=== PATIENT | male | born 1980 | race Caucasian/White ===

== ENCOUNTER 2017-12-05 05:56 | Inpatient (IN) | payer SELFPAY ==
[2017-12-05 06:45] LABS: #Basophils 0.1 thou/uL (0.0-0.2); #Eosinphils 0.2 thou/uL (0.0-0.7); #Lymphocytes 3.1 thou/uL (1.20-3.40); #Monocytes 0.8 thou/uL (0.11-0.59); #Neutrophils 5.2 thou/uL (1.40-6.50); %Basophils 0.6 % (0.0-1.0); %Eosinophils 2.3 % (0.0-10.0); %Lymphocytes 33.3 % (21.0-51.0); %Monocytes 8.5 % (0.0-10.0); %Neutrophils 55.3 % (42.0-75.0); Hemoglobin 16.2 g/dL (14.0-18.0); Mean Corpuscular HGB CONC 33.9 g/dL (32.0-36.0); Mean Corpuscular Hemoglobin 30.2 pg (27.0-31.0); Mean Platelet Volume 8.1 fL (7.4-10.4); Platelet Count 273 thou/uL (130-400); RBC Distribution Width 12.8 % (11.5-14.5); Red Blood Cell (RBC) Count 5.38 mill/uL (4.70-6.10); White Blood Cell (WBC) Count 9.4 thou/uL (4.8-10.8)
[2017-12-05 07:00] LABS: Prothrombin Time 13.4 SEC (12.0-14.7)
[2017-12-05 07:04] LABS: ALT (SGPT) 15 U/L (8-55); AST (SGOT) 16 U/L (5-34); Acetaminophen Less than 6.0 mcg/mL (10.0-30.0); Albumin 4.5 g/dL (3.5-5.0); Alcohol Less than 10 mg/dL (Less than 10); Alkaline Phosphatase 81 U/L (40-150); Anion Gap 12 mmol/L (10-20); BUN (Urea Nitrogen) 15 mg/dL (8.9-20.6); Bilirubin, Total 1.6 mg/dL (0.2-1.2); Calc. Creatinine Clearance 0 mL/min (70-130); Calcium 9.7 mg/dL (7.8-10.44); Carbon Dioxide 30 mmol/L (22-29); Chloride 99 mmol/L (98-107); Estimated GFR-MDRD 90; Glucose 96 mg/dL (70-105); Magnesium 2.4 mg/dL (1.6-2.6); Potassium 3.3 mmol/L (3.5-5.1); Protein, Total 7.5 g/dL (6.0-8.3); Salicylate Less than 8.0 mg/dL (15.0-30.0); Sodium 138 mmol/L (136-145)
--- NOTE | 2017-12-05 07:43 | RAD ---
PORTABLE CHEST 1 VIEW: DATE: 12/05/17. TIME: 6:41 a.m. HISTORY: Altered mental status. FINDINGS: The heart size is enlarged. The lungs are expanded without focal areas of consolidation, pneumothora x, anali pulmonary edema, or pleural effusions. POS: OFF
--- NOTE | 2017-12-05 08:08 | CT ---
CT BRAIN NONCONTRAST: DATE: 12/05/17. TIME: 7:15 a.m. HISTORY: A 37-year-old male with altered mental status. COMPARISON: None. Dr. Rose discussed the findings by telephone with Dr. Wilkes at 7:58 a.m., then at 8:08 am, on 12/05/17 . FINDINGS: In the left parietal region, there is a region of mild parenchymal hemorrhage, surrounded by vasogeni c edema. There are multiple small patchy foci of edema in the left basal ganglia, left insula, and l eft operculum. There is no significant effect. No midline shift. No extraaxial hematoma. The ventr icles are normal in size and configuration. Calvarium is intact IMPRESSION: 1. Multiple small patchy foci of edema in the left middle cerebral artery territory, probably a cute infarctions. 2. A small to moderate-sized region of left parietal intraaxial hemorrhage and surrounding edema , probably hemorrhagic conversion of an infarctions. 3. MRI may be useful, preferably with and without contrast. CODE WALI JN R POS: YADIRA
[2017-12-05] MEDS ORDERED: Nitroglycerin 0.4 MG TAB (25 Tab Bottle) SL PRN (09:47)
[2017-12-05] MEDS ORDERED: Lorazepam 2 MG/ML VIAL SLOW IVP PRN (09:47)
[2017-12-05] MEDS ORDERED: Acetaminophen 325 MG TAB PO PRN (09:47)
[2017-12-05] MEDS ORDERED: Labetalol HCl 100 MG/20 ML VIAL SLOW IVP PRN (09:47)
[2017-12-05] MEDS ORDERED: Norepinephrine 8 MG/0.9% NS 250 ML IVPB PRN (09:47)
[2017-12-05] MEDS ORDERED: Mag-Al 1200 mg/1200 mg/30 ML UDCUP PO PRN (09:47)
[2017-12-05] MEDS ORDERED: CCU Electrolyte Replacement 1 EACH IVPB ONE (09:47)
[2017-12-05] MEDS ORDERED: Milk Of Magnesia 30 ML UDCUP PO PRN (09:47)
[2017-12-05] MEDS ORDERED: Ondansetron PF 4 MG/2 ML Vial IVP PRN (09:47)
[2017-12-05] MEDS ORDERED: Bisacodyl 5 MG TAB PO PRN (09:47)
[2017-12-05] MEDS ORDERED: Potassium Chloride 40 MEQ in Sodium Chloride 0.9% 250 ML 250 ML IVPB SCH (10:00)
[2017-12-05 10:14] LABS: CKMB 0.8 ng/mL (0-6.6)
[2017-12-05] MEDS ORDERED: Potassium Chloride 20 MEQ TAB PO PRN (10:36)
[2017-12-05] MEDS ORDERED: Potassium Chloride 40 MEQ in Premix Bag 1 BAG IVPB PRN (10:36)
[2017-12-05] MEDS ORDERED: Potassium Phosphate 12 MMOL in Sodium Chloride 0.9% 250 ML 250 ML IV PRN (10:36)
[2017-12-05] MEDS ORDERED: Potassium Chloride 40 MEQ in Sodium Chloride 0.9% 250 ML 250 ML IVPB PRN (10:36)
[2017-12-05] MEDS ORDERED: Potassium Phosphate 9 MMOL in Sodium Chloride 0.9% 100 ML IVPB PRN (10:36)
[2017-12-05] MEDS ORDERED: Potassium Phosphate 15 MMOL in Sodium Chloride 0.9% 250 ML 250 ML IV PRN (10:36)
[2017-12-05] MEDS ORDERED: Magnesium Oxide 400 MG TAB PO PRN ×2 (10:36)
[2017-12-05] MEDS ORDERED: Magnesium 2 GM/NS 0.9% 100 ML 2 GM in Premix Bag 1 BAG IVPB PRN (10:36)
[2017-12-05 11:04] LABS: Cocaine Metabolite Screen Not Detected (NotDetected); Medtox Reader # READER 4; Methamphetamine Not Detected (NotDetected); Opiate Screen Not Detected (NotDetected); Phencyclidine (PCP) Not Detected (NotDetected); THC/Cannabinoid Screen Detected (NotDetected)
[2017-12-05 11:05] LABS: Amphetamine Detected (NotDetected); Barbiturates Screen Not Detected (NotDetected); Benzodiazepine Screen Not Detected (NotDetected); Medtox Control Line Valid? VALID (VALID); Methadone Not Detected (NotDetected); Oxycodone Screen Not Detected (NotDetected); Tricyclic Screen Not Detected (NotDetected)
[2017-12-05] MEDS: Sodium Chloride 0.9% 1,000 ML IV SCH (11:16)
[2017-12-05] MEDS: Dexamethasone 4 mg/ml Vial SLOW IVP SCH ×2 (11:20→17:39)
[2017-12-05] MEDS ORDERED: Dexamethasone 4 MG in Sodium Chloride 0.9% 50 ML IVPB SCH (12:00)
--- NOTE | 2017-12-05 12:40 | CON ---
This is Rafaela Santoro PA-C, with Neurosurgery Service. DATE OF CONSULTATION: 12/05/2017 ATTENDING PHYSICIAN: Dr. Flo Clemente. HISTORY OF PRESENT ILLNESS: The patient is a 37-year-old male who was brought to the Emerg ency Department per EMS after found at home in his bed with altered mental status after taking Bath S alts and K2. History is limited as there is no family or friends at the bedside and the patient is u nable to provide history secondary to expressive aphasia and altered mental status. Upon arrival, he was evaluated with a CT noncontrast of the head, which was notable for multiple infarctions in the l eft parietal region with small area of hemorrhagic conversion. There is no midline shift. There was some surrounding vasogenic edema in this region. It is unknown if the patient has a history of anti coagulant or aspirin use. He has a normal INR of 1.0. He also has a normal platelet count of 273. He is being admitted by the Medicine Service for acute CVA with an intentional illicit drug overdose, and we will consult regarding a small area of hemorrhagic conversion. I am seeing the patient in the ICU 86. He opens his eyes to voice. He has expressive aphasia, but w ill nod his head to yes or no questions. Weakness is appreciated over the right upper extremity, 2/5 strength. He is moving the remainder of the extremities with drift and 5/5 strength. He is also no shaista to have a right-sided facial droop. PAST MEDICAL AND SURGICAL HISTORY: Unobtainable secondary to patient's current condition. ALLERGIES: The patient has no known drug allergies. SOCIAL HISTORY: The patient is positive for drug use, K2 and Bath Salts. PHYSICAL EXAMINATION: VITAL SIGNS: Temperature is 98.3, heart rate is 70, respiration rate is 16. Patient is 97% on room air. CONSTITUTIONAL: GCS is 11. HEAD: Normocephalic and atraumatic. EYES: PERRLA. Extraocular movements are intact. Oral mucosa is pink, intact and moist. NECK: Nontender to palpation. Free active range of motion. No meningismus or nuchal rigidity. RESPIRATORY: The patient is breathing comfortably. No evidence of dyspnea, symmetric chest expansio n. CARDIOVASCULAR: Regular rate and rhythm. MUSCULOSKELETAL: He has good muscle tone in the bilateral upper and lower extremities. He is weak i n the right upper extremity, 2/5 with drift. NEUROLOGIC: He is awake and alert. He has expressive aphasia and is not answering any of my questio ns. He does nod his head yes or no. He is following all commands. Weakness is appreciated over the right upper extremity. A right-sided facial droop is also noted. ASSESSMENT AND PLAN: This is a 37-year-old male status post-illicit drug abuse with bath S alts and K2 who was found with altered mental status and expressive aphasia as well as right-sided we akness. His CT is consistent with acute cerebrovascular accident with a small area of hemorrhagic co nversion. I do not appreciate any acute neurosurgical intervention, but we will continue to follow a long the case as well as to get a repeat head CT noncontrast in the morning. I have discussed this p ann with Dr. Clemente who is in agreement. Please reach out to the Neurosurgery Service for addition al questions or concerns.
[2017-12-05 13:16] LABS: Troponin I Less than 0.010 ng/mL (< 0.028)
[2017-12-05] MEDS ORDERED: FLU VACC QS2017-18 36 mo. & older 0.5 ML SYRINGE IM ONE (14:00)
[2017-12-05] MEDS ORDERED: Gadobenate Dimeglumine 529 MG/1 ML (20ML VIAL) ONE (14:05)
--- NOTE | 2017-12-05 14:06 | CON ---
DATE OF CONSULTATION: 12/05/2017 HISTORY: This is a 37-year-old obese gentleman who apparently came to the ER with history of apparen tly drug abuse associated , though when I asked him he is unable to give any verbal communicatio n. He has a left-sided hemorrhage and right upper extremity weakness, paralysis on the right side. He nods his head. He says he does not take any alcohol or tobacco. Apparently he had been using K2 marijuana, but it is unclear how the history is obtained because he d enies any drug abuse at this time, but apparently there is some note that he was taking bath salts. 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 PAST MEDICAL HISTORY: No history of diabetes, hypertension. PAST SURGICAL HISTORY: None. CHRONIC MEDICATIONS: None. ALLERGIES: None. Apparently he has not been in the hospital before. SOCIAL/FAMILY HISTORY: Otherwise, unremarkable. Presently unemployed, but worked telecommunications in the past. REVIEW OF SYSTEMS: Ten point negative. PHYSICAL EXAMINATION: VITAL SIGNS: Blood pressure 150/90, sats 97 on room air, respirations 18, pulse 80. CHEST: Chest reveals decreased breath sounds, no wheezing. CARDIAC: Normal S1, S2. No gallops. ABDOMEN: Soft. No masses. LABORATORY DATA: White count 9000, H&H 16 and 47, platelet count is normal. Electrolytes are normal . His toxicology screen, blood was negative. Urine toxicology is pending. X-RAY FINDINGS: CT of the brain; I reviewed all x-ray images and reports personally, small patchy fo ci edema in the left middle cerebral artery territory distribution, acute infarcts. Moderate sized l eft parietal axial hemorrhage with edema. Chest x-ray was normal. Urine toxicology has been ordered. Neurology and Neurosurgery have been consulted. Supportive care . PLAN: Decadron has been initiated. Await input from Neurosurgery and Neurology. I will follow. This is 45 minute critical care time.
--- NOTE | 2017-12-05 14:12 | MRI ---
MRI OF THE BRAIN WITH AND WITHOUT CONTRAST: HISTORY: Acute stroke with altered mental status. COMPARISON: None. TECHNIQUE: Multiplanar, multisequence MR images were obtained of the brain with and without IV contrast. FINDINGS: There are patchy areas of high FLAIR signal and restricted diffusion in the left MCA distribution. T his is predominantly in the basal ganglia, temporal lobes, and parietal lobes. These are consistent with multifocal acute infarctions in the left MCA distribution. No midline shift or downward herniat ion is seen. There is no evidence of hydrocephalus, intracranial hemorrhage, or extraaxial fluid collection. The expected flow voids are present at the skull base. There is an area of enhancement in the left parie albin lobe, which may represent a subacute infarction and area of enhancement in this location. The co rpus callosum, pituitary, and craniocervical junction are unremarkable. IMPRESSION: 1. Multifocal infarctions in the left middle cerebral artery distribution. 2. There is an area of enhancement in the left parietal lobe, which likely represents enhancement of an area of subacute infarction; however, an underlying mass cannot be entirely excluded. Recommend a follow-up MRI to exclude an underlying mass. POS: YADIRA
--- NOTE | 2017-12-05 14:31 | HP ---
DATE OF ADMISSION: 12/05/2017 PRIMARY CARE PHYSICIAN: None. CHIEF COMPLAINT: Altered mental status. HISTORY OF PRESENT ILLNESS: Mr. Servin was brought into the emergency room by EMS for complaint of al tered mental status this morning. History is mainly obtained by the record review, as the patient healy s significant aphasia and is not able to talk at all. He is awake, alert, but very sleepy at this ti me. Case has been discussed with the admitting ER physician. According to Dr. Wilkes, he was brought in by emergency room after he was found at home in bed. He did report taking a known amount of bath salt as well as K2. At the time of presentation, he denied cocaine or methamphetamine to the emergency room physician. He was hemodynamically stable, albeit a little bit hypertensive upon presentation with a blood pressure of 167/112. His initial workup showe d significant aphasia, and according to the ER note, he was moving all 4 extremities and following co mmands. His EKG showed prolonged QT interval. He underwent a general examination including basic bl ood work, and there were no specific abnormalities except for mildly low potassium at 3.3. His cardi ac enzymes were unremarkable. BNP normal. TSH normal. He did undergo a CT scan of the head, which was concerning for possible acute infarction in the left MCA distribution with surrounding edema and hemorrhage. His urine toxicology was sent afterwards and is now positive for amphetamines and cannab inoids. His salicylate, acetaminophen, and alcohol levels are unremarkable. His chest x-ray did not have any evidence to suggest infection, effusion, or edema. He is now being admitted to the [facility], because of the intracranial hemorrhage associated with acute cerebrovascular accident. Once again, most of the history is obtained by the medical record review and discussion with the [facility] physician. The patient is not able to supplement any of this except that he nods or shake s his head to simple questions. PAST MEDICAL HISTORY: Unknown. PAST SURGICAL HISTORY: Unknown. PSYCHIATRIC HISTORY: Unknown. SOCIAL HISTORY: He uses currently various types of drugs. According to him, he had done bath salts, but he denied amphetamine use to me. ALLERGIES: No known medication allergies. CURRENT HOME MEDICATIONS: He denies being on any medications at home. REVIEW OF SYSTEMS: Unobtainable due to expressive aphasia. The patient shakes his head when I asked him if he is uncomfortable or has any kind of pain. LABORATORY EXAMINATION: CBC is unremarkable. PT, PTT, and INR are normal. Serum chemistries show p otassium of 3.3, bicarbonate 30, bilirubin 1.6 with normal liver enzymes. Serial cardiac enzymes and his troponin less than 0.010 x2. Urine drug screen as per the HPI. Chest x-ray, by my review, has no evidence to suggest infiltrates. He does have significant cardiomegaly on the chest x-ray by my valerie vera. CT scan of the brain as per HPI on my review. Acute patchy foci of edema in the left middle cerebral artery distribution consistent with acute infarction with mild surrounding hemorrhage. PHYSICAL EXAMINATION: VITAL SIGNS: His vital signs upon presentation include blood pressure 167/112, pulse of 80, respirat ions 18, saturating 97% on room air, temperature 99.1. GENERAL EXAMINATION: He opens eyes to verbal commands and follows simple commands, but falls back as leep very quickly. In no acute distress. HEENT: Mucous membrane is moist and pink. No oropharyngeal exudate or erythema. Pupils are dilated , reactive to light bilaterally. Head is normocephalic, atraumatic. NECK: Supple without any lymphadenopathy, JVD, or bruit. CHEST: Clear to auscultation without any wheezing, rales, or rhonchi. CARDIOVASCULAR: Rhythm is regular without any murmur, rubs, or gallops. ABDOMEN: Obese, soft, nontender, nondistended, positive bowel sounds. SKIN: Free of any cyanosis, clubbing, or edema. NEUROLOGICAL EXAMINATION: He has complete expressive aphasia. He has significant right arm hemipare sis. He is able to lift his right leg against resistance. Sensation is intact. He also has facial droop on the left side. Otherwise, cranial nerves II-XII are grossly intact. Gait is not checked. He appears awake, alert, oriented x3. He is able to answer simple questions about his family by nodd ing or shaking his head. SKIN: Free of any rashes or bruises. Feels warm and dry to touch. PSYCHIATRIC: Normal affect. IMPRESSION AND PLAN: 1. Altered mental status, likely secondary to acute cerebrovascular accident. It is most likely sec ondary to his drug abuse and the combination of amphetamine and K2. He does have a significant cardi omegaly on the chest x-ray, so cardiac causes including embolism will also need to be ruled out. We will go ahead and obtain an emergent MRI of his brain with and without contrast as well as transthora cic echocardiogram. I have notified Neurology director of conservation, Dr. Whittaker, about his presence in the hospital, and he will also follow the patient along. Neurosurgery have also been consulted through the emerge ncy room, and they have seen the patient. The plan is to follow him closely without any surgical int ervention for his hemorrhage. We will avoid any anticoagulants including aspirin at this time. 2. Acute cerebrovascular accident, question of embolism is entertained at this time as well. Howeve r ischemia cannot be ruled out, because of the presence K2 and amphetamines. We will obtain the MRI as above and check lipid panel. He will be treated symptomatically and supportively at this time. Inocencio lawton is currently being admitted to CCU due to mild hemorrhagic conversion of the accident. We will mon itor his blood pressure closely and he will be started on p.r.n. antihypertensives to keep systolic b lood pressure less than 150. At this time, he will be kept n.p.o. and we will consult speech patholo loida for further evaluation. He will also be seen by stroke team. We will obtain the echocardiogram , MRI as well as carotid Doppler ultrasound. 2. Hypokalemia. We will replace and recheck. He will be started on CCU electrolyte protocol. 3. Drug abuse. The patient will be counseled once he is stabilized. We will monitor his hemodynami cs closely. Currently, he is hemodynamically stable. 4. Code status: FULL CODE implied. 5. Deep venous thrombosis and gastrointestinal prophylaxis with non pharmacological prophylactic rito sures like sequential compression devices. We will add Pepcid IV b.i.d. DISPOSITION: Mr. Servin is currently being admitted to Critical Care Unit with acute ischemic cerebro vascular accident with hemorrhagic conversion. ESTIMATED LENGTH OF STAY: At least 2 to 3 midnights at this point. Further management will depend u sandra his clinical course.
--- NOTE | 2017-12-05 15:47 | ULT ---
BILATERAL CAROTID DUPLEX ULTRASOUND: HISTORY: CVA. TECHNIQUE: Nolen scale ultrasound with color flow and spectral Doppler imaging of the extracranial carotid artery systems was performed bilaterally. FINDINGS: No significant plaque formation or intimal wall thickening is seen on either side. The peak systolic velocity in the right ICA measures 52 cm/s with an end-diastolic velocity of 17 cm/ s and a systolic ratio of 0.56. The peak systolic velocity in the left ICA measures 47 cm/s with an end-diastolic velocity of 25 cm/s and a systolic ratio of 0.48. Flow in both vertebral arteries remains antegrade. IMPRESSION: No evidence of hemodynamically significant stenosis. POS: OFF
[2017-12-05 16:49] LABS: Troponin I 0.012 ng/mL (< 0.028)
[2017-12-05] MEDS: Famotidine/PF 20 mg/2ml Vial SLOW IVP SCH (21:11)
[2017-12-06] MEDS: Dexamethasone 4 mg/ml Vial SLOW IVP SCH ×4 (00:17→17:50)
[2017-12-06 04:30] LABS: Band 4 % (5-11); Hemoglobin 15.4 g/dL (14.0-18.0); Lymphocytes 11 % (21-51); MDiff Complete? YES; Mean Corpuscular Volume 88.4 fl (80.0-94.0); Mean Platelet Volume 8.2 fL (7.4-10.4); Monocytes 4 % (0-10); Neutrophil 81 % (42-75); Platelet Count 269 thou/uL (130-400); RBC Distribution Width 12.7 % (11.5-14.5); Red Blood Cell (RBC) Count 5.13 mill/uL (4.70-6.10); White Blood Cell (WBC) Count 10.4 thou/uL (4.8-10.8)
[2017-12-06 04:39] LABS: Cardiac Risk 6.4 (Less than 4.5)
[2017-12-06 04:40] LABS: ALT (SGPT) 16 U/L (8-55); AST (SGOT) 14 U/L (5-34); Albumin 4.1 g/dL (3.5-5.0); Alkaline Phosphatase 79 U/L (40-150); Anion Gap 14 mmol/L (10-20); BUN (Urea Nitrogen) 15 mg/dL (8.9-20.6); Calc. Creatinine Clearance 235 mL/min (70-130); Calcium 9.3 mg/dL (7.8-10.44); Carbon Dioxide 23 mmol/L (22-29); Chloride 106 mmol/L (98-107); Estimated GFR-MDRD Greater than 90; Globulin 2.8 g/dL (2.4-3.5); Glucose 112 mg/dL (70-105); Protein, Total 6.9 g/dL (6.0-8.3); Sodium 139 mmol/L (136-145)
[2017-12-06] MEDS: Sodium Chloride 0.9% 1,000 ML IV SCH (05:34)
--- NOTE | 2017-12-06 07:49 | CT ---
PRELIMINARY REPORT/[facility]/EMERGENCY AFTER HOURS PROCEDURE: EXAM: CT Head Without Intravenous Contrast CLINICAL HISTORY: 37 years old, male; Condition or disease; Other: Acute CVA with hemorrhagic convesion; Patient HX: F/ u acute CVA with hemorrhagic convesion TECHNIQUE: Axial computed tomography images of the head/brain without intravenous contrast. COMPARISON: CT Brain WO Con 2017-12-05 07:15 FINDINGS: Brain: Multiple abnormal areas of hypoattenuation within the left temporal and posterior parietal lob es, similar to prior study, likely evolving infarctions. Ventricles: Normal. Bones/joints: Normal. No acute fracture. Soft tissues: Normal. Sinuses: Minimal ethmoid sinus disease. Mastoid air cells: Normal as visualized. No mastoid effusion. IMPRESSION: 1. Multiple abnormal areas of hypoattenuation within the left temporal and posterior parietal lobes, similar to prior study, likely evolving infarctions. 2. No evidence of acute hemorrhage. 3. Incidental/non-acute findings are described above. Thank you for allowing us to participate in the care of your patient. Dictated and Authenticated by: Elpidio Trammell MD 12/06/2017 3:46 AM Central Time ([place] & [place]) FINAL REPORT EMERGENT AFTER HOURS CT BRAIN WITHOUT CONTRAST: 12/06/2017 at 3:33 a.m. CODE QA/Agree with [facility] POS: YADIRA
--- NOTE | 2017-12-06 08:00 | PRG ---
DATE OF SERVICE: 12/06/2017 Mr. Servin is a 37-year-old gentleman, this morning is a little bit more awake, responsive. He is abl e to verbalize. He still has right-sided weakness. His I's and O's have been adequate. PHYSICAL EXAMINATION: VITAL SIGNS: Blood pressure 145/84, pulse 78, sats 97% on room air, respirations 18. CHEST: Chest reveals decreased breath sounds, no wheezing. CARDIAC: Normal S1, S2. ABDOMEN: Soft, no masses. LABORATORY DATA: White count 10,000, H&H 14 and 44. Electrolytes are normal. His drug screen revealed amphetamines and cannabinoids. He had a repeat CT of his brain this morning . This once again shows the left frontoparietal hemorrhage. IMPRESSION: 1. Left-sided hemorrhage. 2. Drug abuse. PLAN: Continue PT and supportive care. Input from Neurology is still awaiting. He probably can be transferred out of the ICU at a later time.
[2017-12-06] MEDS: Famotidine/PF 20 mg/2ml Vial SLOW IVP SCH ×2 (09:13→21:28)
--- NOTE | 2017-12-06 10:38 | CON ---
DATE OF CONSULTATION: 12/05/2017 REFERRING PROVIDER: Dr. Emili Leung. REASON FOR CONSULTATION: Right hemiparesis and aphasia. HISTORY OF PRESENT ILLNESS: Mr. Servin is a 37-year-old male who has been consulted for evaluation of right hemiparesis and aphasia. History is obtained from mother who was present at bedside. Mother reports that patient lives with someone else and they had noticed that they heard a loud thud and when the person went to do a check on him, he was unable to move his right side. He had fallen off the bed. The last time well known is unknown at this time. They had called EMS and he was brought to the [facility]. He had a CT head without contrast done, which showed some hypodensity in the left MCA distribution. For this reason, he was not a candidate for IV tPA or IA tPA. He is also not a candidate for endovascular therapy due to the fact that there was already stroke present on the CT scan. I am being asked to further evaluate this patient for his recent stroke. PAST MEDICAL HISTORY: None significant. PAST SURGICAL HISTORY: None significant. SOCIAL HISTORY: Unknown. CURRENT MEDICATIONS: Please review MAR. ALLERGIES: No known drug allergies. FAMILY HISTORY: Noncontributory. REVIEW OF SYSTEMS: Unable to perform. PHYSICAL EXAMINATION: VITAL SIGNS: Blood pressure of 138/74, heart rate of 85, temperature of 98.9, respirations of 23, O2 sats of 94%. GENERAL: Well-developed, well-nourished male in no apparent distress. RESPIRATORY: Clear to auscultation bilaterally. CARDIOVASCULAR: Regular rate and rhythm. NEUROLOGIC: The patient is awake and alert, but he is completely mute. He is globally aphasic. Cranial nerves: Pupils are 3 mm and reactive. He blinks to threat on the left side, but does not blink to threat on the right side. There is a right facial droop noted. Motor exam showed flaccid right upper and right lower extremity with 0-5 strength in the right upper and right lower extremity. He spontaneously moves left upper and left lower extremity with 5/5 strength on the left upper and left lower extremity. Sensory: He does not withdraw to pain on the right side. Brisk reflexes in the right upper and right lower extremity. Babinski plantar responses equivocal on the right side and flexion on the left. Gait and Romberg coordination could not be tested. LABORATORY DATA: Reviewed, which included CBC, coag panel, CMP, and TSH which is significant for potassium of 3.3, otherwise unremarkable. Urine drug screen did show positive for amphetamines and cannabinoids. Plasma alcohol level was less than 10. IMAGING STUDIES: MRI brain without contrast was reviewed, which showed acute multifocal infarctions in the left MCA territory. IMPRESSION: 1. Acute left middle cerebral artery distribution ischemic infarct. 2. Polysubstance abuse. ASSESSMENT AND PLAN: Mr. Servin is a pleasant 37-year-old male who presented with acute right-sided weakness and aphasia. He is found to have large left middle cerebral artery distribution multifocal ischemic infarct. At this time, I will recommend continuing supportive care, consult PT, OT, speech therapy. I would recommend obtaining echocardiogram and if transthoracic echocardiogram is normal, then he may benefit from transesophageal echocardiogram. I will also recommend obtaining hypercoagulation panel and I have discussed with the patient's mother in detail and explained the findings with MRI. I also explained that there is a risk of worsening of the stroke over the next 2-3 days, which may have result in swelling and swelling can cause herniation. I have explained that patient needs to be monitored over the next 2-3 days for any neurological changes. Thank you for your consultation. ERIKA
--- NOTE | 2017-12-06 15:01 | PDOC.PN ---
- Subjective Encounter Start Date: 12/06/17 Encounter Start Time: 14:58 Subjective: still about the same.not able to move R arm.speech a little better -: sleepy - Objective MAR Reviewed: Yes Vital Signs & Weight: Vital Signs (12 hours) Temp Pulse Pulse Pulse Pulse Resp BP 12/06/17 09:55 75 74 165/98 H 12/06/17 09:20 87 81 78 154/103 H 12/06/17 08:00 98 F 78 18 12/06/17 04:00 97.7 F BP BP Pulse Ox Pulse Ox Pulse Ox Pulse Ox 12/06/17 09:55 159/84 H 98 98 12/06/17 09:20 185/123 H 163/94 H 98 98 99 12/06/17 08:00 97 12/06/17 04:00 Weight Admit Weight 282 lb Weight 281 lb 8.485 oz Most Recent Monitor Data Heart Rate from ECG 74 NIBP 151/96 NIBP BP-Mean 115 Respiration from ECG 20 SpO2 95 I&O: 12/05/17 12/06/17 12/07/17 06:59 06:59 06:59 Intake Total 1057 60 Output Total 1035 220 Balance 22 -160 Result Diagrams: 12/06/17 03:54 12/06/17 03:54 Additional Labs: Laboratory Tests 12/05/17 12/05/17 12/05/17 06:38 10:33 12:38 Troponin I 0.010 Less than 0.010 Cholesterol LDL Cholesterol, Calc HDL Cholesterol Heart Disease Risk Ratio Ur Amphetamines Screen Detected H U Cannabinoids Screen Detected H 12/05/17 12/06/17 16:14 03:54 Troponin I 0.012 Cholesterol 232 H LDL Cholesterol, Calc 179 HDL Cholesterol 36 Heart Disease Risk Ratio 6.4 Ur Amphetamines Screen U Cannabinoids Screen Phys Exam - Physical Examination Constitutional: NAD HEENT: PERRLA, moist MMs, sclera anicteric, TM's clear, oral pharynx no lesions , 2+ tonsils Neck: no nodes, no JVD, supple, full ROM Respiratory: no wheezing, no rales, no rhonchi, clear to auscultation bilateral Cardiovascular: RRR, no significant murmur Gastrointestinal: soft, non-tender, no distention, positive bowel sounds Musculoskeletal: no edema, pulses present Neurological: non-focal, normal sensation, moves all 4 limbs Psychiatric: normal affect, A&O x 3 Skin: no rash Dx/Plan (1) CVA (cerebral vascular accident) Code(s): I63.9 - CEREBRAL INFARCTION, UNSPECIFIED Status: Acute Qualifiers: Precerebral and cerebral artery: middle cerebral artery Laterality of affected vessel: left (2) Cerebral edema Code(s): G93.6 - CEREBRAL EDEMA Status: Acute Comment: due to CVA (3) Aphasia due to recent cerebrovascular accident Code(s): I69.320 - APHASIA FOLLOWING CEREBRAL INFARCTION Status: Acute (4) Hemiparesis Code(s): G81.90 - HEMIPLEGIA, UNSPECIFIED AFFECTING UNSPECIFIED SIDE Status: Acute Qualifiers: Hemiparesis etiology: cerebrovascular etiology (5) Drug abuse Code(s): F19.10 - OTHER PSYCHOACTIVE SUBSTANCE ABUSE, UNCOMPLICATED Status: Acute - Plan PT/OT, DVT proph w/SCDs cont decadron.cont supportive care. OT,PT,DIRECTOR OF SCOUT WORK.NPO -: avoid ASA d/t hemporrhage around CVA.NS following -: ECHO WNL.may need JACKIE. -: monitor closely w frequent neuro checks. -: HD stable.am labs * . Review of Systems - Review of Systems Constitutional: negative: fever, chills, sweats, weakness, malaise, other Respiratory: negative: Cough, Dry, Shortness of Breath, Hemoptysis, SOB with Excertion, Pleuritic Pain, Sputum, Wheezing Cardiovascular: negative: chest pain, palpitations, orthopnea, paroxysmal nocturnal dyspnea, edema, light headedness, other Gastrointestinal: negative: Nausea, Vomiting, Abdominal Pain, Diarrhea, Constipation, Melena, Hematochezia, Other Genitourinary: negative: Dysuria, Frequency, Incontinence, Hematuria, Retention , Other Musculoskeletal: negative: Neck Pain, Shoulder Pain, Arm Pain, Back Pain, Hand Pain, Leg Pain, Foot Pain, Other Neurological: negative: Weakness, Numbness, Incoordination, Change in Speech, Confusion, Seizures, Other - Medications/Allergies Allergies/Adverse Reactions: Allergies Allergy/AdvReac Type Severity Reaction Status Date / Time No Known Drug Allergies Allergy Verified 12/05/17 10:27 Medications: Current Medications Acetaminophen (Tylenol) 650 mg PO Q6H PRN PRN Reason: Fever > 101 or Headache Al Hydroxide/Mg Hydroxide (Maalox) 30 ml PO Q8H PRN PRN Reason: Indigestion Albuterol/Ipratropium (Duoneb) 3 ml NEB [id number] PRN PRN Reason: SOB &/or Wheezing Bisacodyl (Dulcolax) 10 mg PO DAILYPRN PRN PRN Reason: Constipation Dexamethasone (Decadron) 4 mg SLOW IVP Q6HR [facility] Last Admin: 12/06/17 05:34 Dose: 4 mg Famotidine (Pepcid) 20 mg SLOW IVP Q12HR [facility] Last Admin: 12/06/17 09:13 Dose: 20 mg Norepinephrine Bitartrate (Levophed) 250 mls @ 0 mls/hr IVPB PRN PRN; Protocol ; Titrate PRN Reason: To maintain MAP > 65 Potassium Chloride 40 meq/ (Sodium Chloride) 270 mls @ 135 mls/hr IVPB ASDIR PRN PRN Reason: FOR SERUM K+ 2.5 - 3.5 Potassium Chloride 40 meq/ (Device) 100 mls @ 50 mls/hr IVPB ASDIR PRN PRN Reason: FOR SERUM K+ 2.5 - 3.5 Magnesium Sulfate 1 gm/ Sodium (Chloride) 102 mls @ 102 mls/hr IV PRN PRN PRN Reason: MAG LEVEL 1.4 - 2.0 Magnesium Sulfate 2 gm/ Device 100 mls @ 100 mls/hr IVPB ASDIR PRN PRN Reason: MAGNESIUM < 1.4 Potassium Phosphate 9 mmol/ (Sodium Chloride) 103 mls @ 25.75 mls/hr IVPB ASDIR PRN PRN Reason: Phosphate 1.0-1.8 Potassium Phosphate 12 mmol/ (Sodium Chloride) 254 mls @ 63.5 mls/hr IV ASDIR PRN PRN Reason: Serum phosphate 0.5-0.9 Potassium Phosphate 15 mmol/ (Sodium Chloride) 255 mls @ 63.75 mls/hr IV ASDIR PRN PRN Reason: Serum Phos < 0.5 Sodium Chloride (Normal Saline 0.9%) 1,000 mls @ 50 mls/hr IV .Q20H [facility] Last Admin: 12/06/17 05:34 Dose: 1,000 mls Labetalol HCl (Normodyne) 10 mg SLOW IVP Q2H PRN PRN Reason: SBP > 150 or DBP > 90 Lorazepam (Ativan) 1 mg SLOW IVP Q4H PRN PRN Reason: Anxiety/Agitation Magnesium Hydroxide (Milk Of Magnesium) 30 ml PO Q8H PRN PRN Reason: Constipation Magnesium Oxide (Magnesium Oxide) 400 mg PO BIDPRN PRN PRN Reason: FOR SERUM MAG 1.4 - 2.0 Magnesium Oxide (Magnesium Oxide) 800 mg PO PRN PRN PRN Reason: FOR SERUM MAG < 1.4 Miscellaneous Medication (Phos-Nak) 1 pkt PO TIDPRN PRN PRN Reason: FOR PHOS LEVEL 1.0 - 1.8 Miscellaneous Medication (Phos-Nak) 2 pkt PO TIDPRN PRN PRN Reason: FOR PHOS LEVEL 0.5 - 1.0 Nitroglycerin (Nitrostat) 0.4 mg SL Q5MIN PRN PRN Reason: Chest Pain Ondansetron HCl (Zofran) 4 mg IVP Q6H PRN PRN Reason: Nausea/Vomiting Potassium Chloride (K-Dur) 40 meq PO ASDIR PRN PRN Reason: FOR SERUM K+ 2.5 - 3.5 Potassium Chloride (Klor-Con) 40 meq PER TUBE ASDIR PRN PRN Reason: FOR SERUM K+ 2.5-3.5 Sodium Chloride (Flush - Normal Saline) 10 ml IVF PRN PRN PRN Reason: Saline Flush Sodium Chloride (Flush - Normal Saline) 10 ml IVF PRN PRN PRN Reason: Saline Flush
[2017-12-07] MEDS: Dexamethasone 4 mg/ml Vial SLOW IVP SCH ×4 (00:39→19:20)
[2017-12-07] MEDS: Sodium Chloride 0.9% 1,000 ML IV SCH ×2 (05:00→21:19)
[2017-12-07 05:42] LABS: ALT (SGPT) 15 U/L (8-55); AST (SGOT) 11 U/L (5-34); Albumin 4.1 g/dL (3.5-5.0); Alkaline Phosphatase 72 U/L (40-150); Anion Gap 12 mmol/L (10-20); BUN (Urea Nitrogen) 19 mg/dL (8.9-20.6); Bilirubin, Total 0.7 mg/dL (0.2-1.2); Calc. Creatinine Clearance 222 mL/min (70-130); Calcium 9.6 mg/dL (7.8-10.44); Carbon Dioxide 24 mmol/L (22-29); Chloride 106 mmol/L (98-107); Estimated GFR-MDRD Greater than 90; Globulin 2.7 g/dL (2.4-3.5); Glucose 142 mg/dL (70-105); Protein, Total 6.8 g/dL (6.0-8.3); Sodium 138 mmol/L (136-145)
[2017-12-07 05:43] LABS: Hemoglobin 15.5 g/dL (14.0-18.0); Lymphocytes 13 % (21-51); MDiff Complete? YES; Mean Corpuscular HGB CONC 34.2 g/dL (32.0-36.0); Mean Corpuscular Volume 87.8 fl (80.0-94.0); Mean Platelet Volume 8.2 fL (7.4-10.4); Monocytes 5 % (0-10); Neutrophil 82 % (42-75); Platelet Count 284 thou/uL (130-400); RBC Distribution Width 12.7 % (11.5-14.5); Red Blood Cell (RBC) Count 5.17 mill/uL (4.70-6.10); White Blood Cell (WBC) Count 10.1 thou/uL (4.8-10.8)
--- NOTE | 2017-12-07 08:46 | PRG ---
DATE OF SERVICE: 12/07/2017 He is awake, alert, responsive. He is unable to move his right side. PHYSICAL EXAMINATION: VITAL SIGNS: Blood pressure 140/70, sats 97 on room air, respirations 18. I's and O's are 1057 in, 293 out. CHEST: Chest reveals decreased breath sounds, no wheezing. CARDIAC: Normal S1, S2. ABDOMEN: Soft, no masses. Electrolytes are normal. White count 10,000, H&H is unremarkable. IMPRESSION: 1. Status post left-sided hemorrhage, felt to be embolic. 2. Substance abuse. PLAN: From a Pulmonary standpoint of view he is stable enough to move out of the ICU when it is okay with Neurology. I will follow while in the ICU.
[2017-12-07] MEDS: Famotidine/PF 20 mg/2ml Vial SLOW IVP SCH ×2 (09:51→21:15)
--- NOTE | 2017-12-07 15:34 | PDOC.PN ---
- Subjective Encounter Start Date: 12/07/17 Encounter Start Time: 15:32 Subjective: feels about the same. -: mother at bedside.reports symptoms of R leg weakness -: nursing reports waxing/waning weakness symptoms - Objective MAR Reviewed: Yes Vital Signs & Weight: Vital Signs (12 hours) Temp Pulse Pulse Pulse Resp BP BP 12/07/17 09:14 79 81 155/78 H 12/07/17 08:00 98.2 F 84 16 12/07/17 06:15 68 165/103 H 12/07/17 04:00 98.3 F BP Pulse Ox Pulse Ox Pulse Ox 12/07/17 09:14 140/68 99 98 12/07/17 08:00 97 12/07/17 06:15 12/07/17 04:00 Weight Admit Weight 282 lb Weight 279 lb 8.738 oz Most Recent Monitor Data Heart Rate from ECG 78 NIBP 148/87 NIBP BP-Mean 104 Respiration from ECG 15 SpO2 99 I&O: 12/06/17 12/07/17 12/08/17 06:59 06:59 06:59 Intake Total 1057 1572 641 Output Total 1035 980 250 Balance 22 592 391 Result Diagrams: 12/07/17 05:12 12/07/17 05:12 Radiology Reviewed by me: Yes (ECHO-no cardiac thrombus) EKG Reviewed by me: Yes (NSR.) Phys Exam - Physical Examination Constitutional: NAD wakes up w verbal stimulus & falls back asleep HEENT: PERRLA, moist MMs, 2+ tonsils Neck: no JVD Respiratory: no wheezing, no rales, no rhonchi, clear to auscultation bilateral Cardiovascular: RRR, no significant murmur Gastrointestinal: soft, non-tender, no distention, positive bowel sounds Musculoskeletal: no edema, pulses present expressive aphasia and R hemipareis involvin arm & leg today Lymphatic: no nodes Psychiatric: normal affect, A&O x 3 Deviation from normal: somnolent Skin: no rash Dx/Plan (1) CVA (cerebral vascular accident) Code(s): I63.9 - CEREBRAL INFARCTION, UNSPECIFIED Status: Acute Qualifiers: Precerebral and cerebral artery: middle cerebral artery Laterality of affected vessel: left (2) Cerebral edema Code(s): G93.6 - CEREBRAL EDEMA Status: Acute Comment: due to CVA (3) Aphasia due to recent cerebrovascular accident Code(s): I69.320 - APHASIA FOLLOWING CEREBRAL INFARCTION Status: Acute (4) Hemiparesis Code(s): G81.90 - HEMIPLEGIA, UNSPECIFIED AFFECTING UNSPECIFIED SIDE Status: Acute Qualifiers: Hemiparesis etiology: cerebrovascular etiology (5) Drug abuse Code(s): F19.10 - OTHER PSYCHOACTIVE SUBSTANCE ABUSE, UNCOMPLICATED Status: Acute - Plan PT/OT, social services designee, speech therapy, DVT proph w/SCDs started on Pureed diet.monitor for aspiration -: will get JACKIE as embolic stoke can not be ruled out -: no ASA for now given hemorrhagic conversion.cont decadron -: High risk of decompensation in immediate post CVA phase -: HD stable. will transfer to Stroke w frequent neuro checks. * . Review of Systems - Review of Systems Other: unobtainable due o somnolence & expressive aphasia - Medications/Allergies Allergies/Adverse Reactions: Allergies Allergy/AdvReac Type Severity Reaction Status Date / Time No Known Drug Allergies Allergy Verified 12/05/17 10:27 Medications: Current Medications Acetaminophen (Tylenol) 650 mg PO Q6H PRN PRN Reason: Fever > 101 or Headache Al Hydroxide/Mg Hydroxide (Maalox) 30 ml PO Q8H PRN PRN Reason: Indigestion Albuterol/Ipratropium (Duoneb) 3 ml NEB [id number] PRN PRN Reason: SOB &/or Wheezing Bisacodyl (Dulcolax) 10 mg PO DAILYPRN PRN PRN Reason: Constipation Dexamethasone (Decadron) 4 mg SLOW IVP Q6HR [facility] Last Admin: 12/07/17 14:10 Dose: 4 mg Famotidine (Pepcid) 20 mg SLOW IVP Q12HR [facility] Last Admin: 12/07/17 09:51 Dose: 20 mg Norepinephrine Bitartrate (Levophed) 250 mls @ 0 mls/hr IVPB PRN PRN; Protocol ; Titrate PRN Reason: To maintain MAP > 65 Potassium Chloride 40 meq/ (Sodium Chloride) 270 mls @ 135 mls/hr IVPB ASDIR PRN PRN Reason: FOR SERUM K+ 2.5 - 3.5 Potassium Chloride 40 meq/ (Device) 100 mls @ 50 mls/hr IVPB ASDIR PRN PRN Reason: FOR SERUM K+ 2.5 - 3.5 Magnesium Sulfate 1 gm/ Sodium (Chloride) 102 mls @ 102 mls/hr IV PRN PRN PRN Reason: MAG LEVEL 1.4 - 2.0 Magnesium Sulfate 2 gm/ Device 100 mls @ 100 mls/hr IVPB ASDIR PRN PRN Reason: MAGNESIUM < 1.4 Potassium Phosphate 9 mmol/ (Sodium Chloride) 103 mls @ 25.75 mls/hr IVPB ASDIR PRN PRN Reason: Phosphate 1.0-1.8 Potassium Phosphate 12 mmol/ (Sodium Chloride) 254 mls @ 63.5 mls/hr IV ASDIR PRN PRN Reason: Serum phosphate 0.5-0.9 Potassium Phosphate 15 mmol/ (Sodium Chloride) 255 mls @ 63.75 mls/hr IV ASDIR PRN PRN Reason: Serum Phos < 0.5 Sodium Chloride (Normal Saline 0.9%) 1,000 mls @ 50 mls/hr IV .Q20H [facility] Last Admin: 12/07/17 05:00 Dose: 1,000 mls Labetalol HCl (Normodyne) 10 mg SLOW IVP Q2H PRN PRN Reason: SBP > 150 or DBP > 90 Last Admin: 12/07/17 06:15 Dose: 10 mg Lorazepam (Ativan) 1 mg SLOW IVP Q4H PRN PRN Reason: Anxiety/Agitation Magnesium Hydroxide (Milk Of Magnesium) 30 ml PO Q8H PRN PRN Reason: Constipation Magnesium Oxide (Magnesium Oxide) 400 mg PO BIDPRN PRN PRN Reason: FOR SERUM MAG 1.4 - 2.0 Magnesium Oxide (Magnesium Oxide) 800 mg PO PRN PRN PRN Reason: FOR SERUM MAG < 1.4 Miscellaneous Medication (Phos-Nak) 1 pkt PO TIDPRN PRN PRN Reason: FOR PHOS LEVEL 1.0 - 1.8 Miscellaneous Medication (Phos-Nak) 2 pkt PO TIDPRN PRN PRN Reason: FOR PHOS LEVEL 0.5 - 1.0 Nitroglycerin (Nitrostat) 0.4 mg SL Q5MIN PRN PRN Reason: Chest Pain Ondansetron HCl (Zofran) 4 mg IVP Q6H PRN PRN Reason: Nausea/Vomiting Potassium Chloride (K-Dur) 40 meq PO ASDIR PRN PRN Reason: FOR SERUM K+ 2.5 - 3.5 Potassium Chloride (Klor-Con) 40 meq PER TUBE ASDIR PRN PRN Reason: FOR SERUM K+ 2.5-3.5 Sodium Chloride (Flush - Normal Saline) 10 ml IVF PRN PRN PRN Reason: Saline Flush Sodium Chloride (Flush - Normal Saline) 10 ml IVF PRN PRN PRN Reason: Saline Flush
[2017-12-07 19:32] LABS: PTT 31.3 SEC (22.9-36.1); Prothrombin Time 13.8 SEC (12.0-14.7)
[2017-12-07 19:35] LABS: D-Dimer Test Less than 0.27 *mcg/mL (0.27-0.43)
--- NOTE | 2017-12-07 20:01 | PRG ---
DATE OF SERVICE: 12/07/2017 SUBJECTIVE: Mr. Servin has not had any changes in his neurological function over the past 48 hours. The mother was present at bedside, who reports that he is able to get a few syllables out, which he was not doing on yesterday. He has not complained of headache over the past 24 hours. There has not been any fever or chills. PHYSICAL EXAMINATION: VITAL SIGNS: Blood pressure 138/72, pulse of 76, temperature of 98.4, respirations of 18, O2 sats of 96% on room air. GENERAL: Well-developed, well-nourished male in no apparent distress. RESPIRATORY: Clear to auscultation bilaterally. CARDIOVASCULAR: Regular rate and rhythm. NEUROLOGICAL: Mental status: Patient is awake, alert, oriented to person, place, and time. He was able to state the current year as well as the name of the town. He is able to follow some simple commands. Speech and language mostly nonverbal with more expressive aphasia than receptive aphasia. Cranial nerves: Pupils are 3 mm and reactive. Visual gerardo are full to threat. Extraocular muscles are intact. No nystagmus is noted. There is a right facial droop noted. Tongue and uvula are midline. Motor exam showed flaccid right upper and right lower extremity. He has a 0/5 strength in the right upper and right lower extremity. IMAGING STUDIES: Reviewed, which included CT head without contrast, which showed patchy left middle cerebral artery distribution ischemic infarct without any hemorrhagic conversion. Echocardiogram results were reviewed, which showed ejection fraction of 50% to 55% with mild mitral and tricuspid regurgitation, otherwise unremarkable. Carotid Doppler results were reviewed, which showed no hemodynamically significant stenosis. IMPRESSION: 1. Large left middle cerebral artery distribution ischemic infarct. 2. Hypertension. ASSESSMENT AND PLAN: Mr. Servin is a pleasant 37-year-old male who presented with an acute onset of right hemiparesis and aphasia. He is found to have large left middle cerebral artery distribution ischemic infarct. At this time, I would recommend starting him on aspirin 325 mg daily for secondary stroke prevention. I have reviewed his CT head without contrast, which did not show any hemorrhagic conversion to the ischemic stroke and thus he is okay to be started on antiplatelet therapy. I will recommend obtaining transesophageal echocardiogram for further evaluation as well as obtaining hypercoagulation panel. Once the workup is done, patient is okay to be discharged to rehab facility from my standpoint. Thank you for the consultation. ERIKA
[2017-12-08] MEDS: Dexamethasone 4 mg/ml Vial SLOW IVP SCH ×2 (01:23→06:07)
[2017-12-08] MEDS ORDERED: PROPOFOL 0 ML ONE (07:08)
--- NOTE | 2017-12-08 07:27 | CT ---
PRELIMINARY REPORT/[facility]/EMERGENCY AFTER HOURS PROCEDURE: EXAM: CT Head Without Intravenous Contrast CLINICAL HISTORY: 37 years old, male; Condition or disease; Other: Acute CVA with hemorrhagic convesion; Patient HX: F/ u acute CVA with hemorrhagic convesion TECHNIQUE: Axial computed tomography images of the head/brain without intravenous contrast. COMPARISON: CT Brain WO Con 2017-12-05 07:15 FINDINGS: Brain: Multiple abnormal areas of hypoattenuation within the left temporal and posterior parietal lob es, similar to prior study, likely evolving infarctions. Ventricles: Normal. Bones/joints: Normal. No acute fracture. Soft tissues: Normal. Sinuses: Minimal ethmoid sinus disease. Mastoid air cells: Normal as visualized. No mastoid effusion. IMPRESSION: 1. Multiple abnormal areas of hypoattenuation within the left temporal and posterior parietal lobes, similar to prior study, likely evolving infarctions. 2. No evidence of acute hemorrhage. 3. Incidental/non-acute findings are described above. Thank you for allowing us to participate in the care of your patient. Dictated and Authenticated by: Elpidio Trammell MD 12/06/2017 3:46 AM Central Time ([place] & [place]) FINAL REPORT BRAIN CT WITHOUT IV CONTRAST: EMERGENT AFTER HOURS REPORT 12/06/2017 at 3:33 a.m. COMPARISON: 12/05/2017 HISTORY: A 37-year-old male with acute CVA with hemorrhagic conversion. FINDINGS: Minimally progressive abnormal low attenuation changes in the left caudate and left basal ganglia and periventricular regions with stable low attenuation changes in the posterior left temporal and parie albin lobes. No evidence for new hemorrhage or new significant mass effect. IMPRESSION: Evolving patchy infarct changes including the left caudate, periventricular, and basal ganglia region s as well as posterior temporal and posterior parietal regions. No new hemorrhage. CODE QA/Agree with [facility] POS: [facility]
--- NOTE | 2017-12-08 09:41 | PRG ---
DATE OF SERVICE: 12/08/2017 This morning he is awake, alert, responsive. He has right-sided weakness. He is going for a JACKIE to rule out any embolic episode. PHYSICAL EXAMINATION: VITAL SIGNS: Blood pressure is 116/80, O2 sats 97% on room air, temperature 98. CHEST: Chest reveals decreased breath sounds, no wheezing. CARDIAC: Normal S1, S2. ABDOMEN: Soft, no masses. IMPRESSION: 1. Left-sided cerebrovascular accident hemorrhage. 2. Hypertension. 3. Substance abuse. PLAN: JACKIE is being ordered. Continue supportive care, PT, eventually placement. Pulmonary Critical Care will follow at a distance. Please call if needed.
[2017-12-08] MEDS: Aspirin 325 MG TAB PO SCH (10:08)
[2017-12-08] MEDS: Famotidine/PF 20 mg/2ml Vial SLOW IVP SCH ×2 (11:01→14:02)
[2017-12-08] MEDS ORDERED: Famotidine 40 MG/4 ML VIAL SLOW IVP SCH (11:45)
[2017-12-08] MEDS ORDERED: PROPOFOL 20 ML ONE (12:10)
[2017-12-08] MEDS ORDERED: PROPOFOL 200 MG/20 ML VIAL ONE (13:12)
--- NOTE | 2017-12-08 14:06 | PDOC.PN ---
- Subjective Encounter Start Date: 12/08/17 Encounter Start Time: 14:04 Subjective: speech is much better.able to speak small sentences -: R sided weakness persists - Objective MAR Reviewed: Yes Vital Signs & Weight: Vital Signs (12 hours) Temp Pulse Pulse Pulse Resp BP BP 12/08/17 11:48 98.2 F 70 20 12/08/17 10:09 68 71 161/103 H 162/96 H 12/08/17 08:00 98.6 F 77 20 12/08/17 07:55 98.6 F 77 20 12/08/17 05:00 69 18 BP Pulse Ox 12/08/17 11:48 172/98 H 95 12/08/17 10:09 12/08/17 08:00 12/08/17 07:55 163/91 H 94 L 12/08/17 05:00 180/102 H 95 Weight Admit Weight 282 lb Weight 280 lb Most Recent Monitor Data Heart Rate from ECG 78 NIBP 148/87 NIBP BP-Mean 104 Respiration from ECG 15 SpO2 99 I&O: 12/07/17 12/08/17 12/09/17 06:59 06:59 06:59 Intake Total 1572 1993 Output Total 980 1400 Balance 592 593 Result Diagrams: 12/07/17 05:12 12/07/17 05:12 Additional Labs: Laboratory Tests 12/06/17 03:54 Triglycerides 85 Cholesterol 232 H LDL Cholesterol, Calc 179 HDL Cholesterol 36 Phys Exam - Physical Examination Constitutional: NAD more awake today HEENT: PERRLA, moist MMs, sclera anicteric, oral pharynx no lesions facial droop Neck: no JVD Respiratory: no wheezing, no rales, no rhonchi, clear to auscultation bilateral Cardiovascular: RRR, no significant murmur Gastrointestinal: soft, non-tender, no distention, positive bowel sounds Musculoskeletal: no edema, pulses present Neurological: normal sensation expressive aphasia is better. R hemiparesis Psychiatric: normal affect, A&O x 3 Skin: no rash Dx/Plan (1) CVA (cerebral vascular accident) Code(s): I63.9 - CEREBRAL INFARCTION, UNSPECIFIED Status: Acute Qualifiers: Precerebral and cerebral artery: middle cerebral artery Laterality of affected vessel: left (2) Cerebral edema Code(s): G93.6 - CEREBRAL EDEMA Status: Acute Comment: due to CVA (3) Aphasia due to recent cerebrovascular accident Code(s): I69.320 - APHASIA FOLLOWING CEREBRAL INFARCTION Status: Acute (4) Hemiparesis Code(s): G81.90 - HEMIPLEGIA, UNSPECIFIED AFFECTING UNSPECIFIED SIDE Status: Acute Qualifiers: Hemiparesis etiology: cerebrovascular etiology (5) Drug abuse Code(s): F19.10 - OTHER PSYCHOACTIVE SUBSTANCE ABUSE, UNCOMPLICATED Status: Acute - Plan PT/OT, social media developer, speech therapy, incentive spirometry, out of bed/ ambulate, DVT proph w/SCDs Started on ASA w statin.JACKIE today -: awaiting rehab Vs HH whichever can be arranged.Uninsured -: cont PT,OT,JOURNEYMAN ELECTRICIAN PV INSTALLER. -: HD stable. -: Hypercoagulation work up pending * . Review of Systems - Review of Systems Constitutional: negative: fever, chills, sweats, weakness, malaise, other ENT: negative: Ear Pain, Ear Discharge, Nose Pain, Nose Discharge, Nose Congestion, Mouth Pain, Mouth Swelling, Throat Pain, Throat Swelling, Other Respiratory: negative: Cough, Dry, Shortness of Breath, Hemoptysis, SOB with Excertion, Pleuritic Pain, Sputum, Wheezing Cardiovascular: negative: chest pain, palpitations, orthopnea, paroxysmal nocturnal dyspnea, edema, light headedness, other Gastrointestinal: negative: Nausea, Vomiting, Abdominal Pain, Diarrhea, Constipation, Melena, Hematochezia, Other Genitourinary: negative: Dysuria, Frequency, Incontinence, Hematuria, Retention , Other Musculoskeletal: negative: Neck Pain, Shoulder Pain, Arm Pain, Back Pain, Hand Pain, Leg Pain, Foot Pain, Other Skin: negative: Rash, Lesions, Genaro, Bruising, Other Neurological: Weakness, Change in Speech - Medications/Allergies Allergies/Adverse Reactions: Allergies Allergy/AdvReac Type Severity Reaction Status Date / Time No Known Drug Allergies Allergy Verified 12/05/17 10:27 Medications: Current Medications Acetaminophen (Tylenol) 650 mg PO Q6H PRN PRN Reason: Fever > 101 or Headache Al Hydroxide/Mg Hydroxide (Maalox) 30 ml PO Q8H PRN PRN Reason: Indigestion Albuterol/Ipratropium (Duoneb) 3 ml NEB [id number] PRN PRN Reason: SOB &/or Wheezing Aspirin (Aspirin) 325 mg PO DAILY [facility] Last Admin: 12/08/17 10:08 Dose: Not Given Bisacodyl (Dulcolax) 10 mg PO DAILYPRN PRN PRN Reason: Constipation Famotidine (Pepcid) 20 mg SLOW IVP Q12HR [facility] Norepinephrine Bitartrate (Levophed) 250 mls @ 0 mls/hr IVPB PRN PRN; Protocol ; Titrate PRN Reason: To maintain MAP > 65 Potassium Chloride 40 meq/ (Sodium Chloride) 270 mls @ 135 mls/hr IVPB ASDIR PRN PRN Reason: FOR SERUM K+ 2.5 - 3.5 Potassium Chloride 40 meq/ (Device) 100 mls @ 50 mls/hr IVPB ASDIR PRN PRN Reason: FOR SERUM K+ 2.5 - 3.5 Magnesium Sulfate 1 gm/ Sodium (Chloride) 102 mls @ 102 mls/hr IV PRN PRN PRN Reason: MAG LEVEL 1.4 - 2.0 Magnesium Sulfate 2 gm/ Device 100 mls @ 100 mls/hr IVPB ASDIR PRN PRN Reason: MAGNESIUM < 1.4 Potassium Phosphate 9 mmol/ (Sodium Chloride) 103 mls @ 25.75 mls/hr IVPB ASDIR PRN PRN Reason: Phosphate 1.0-1.8 Potassium Phosphate 12 mmol/ (Sodium Chloride) 254 mls @ 63.5 mls/hr IV ASDIR PRN PRN Reason: Serum phosphate 0.5-0.9 Potassium Phosphate 15 mmol/ (Sodium Chloride) 255 mls @ 63.75 mls/hr IV ASDIR PRN PRN Reason: Serum Phos < 0.5 Sodium Chloride (Normal Saline 0.9%) 1,000 mls @ 50 mls/hr IV .Q20H [facility] Last Admin: 12/07/17 21:19 Dose: 1,000 mls Labetalol HCl (Normodyne) 10 mg SLOW IVP Q2H PRN PRN Reason: SBP > 150 or DBP > 90 Last Admin: 12/07/17 06:15 Dose: 10 mg Lorazepam (Ativan) 1 mg SLOW IVP Q4H PRN PRN Reason: Anxiety/Agitation Magnesium Hydroxide (Milk Of Magnesium) 30 ml PO Q8H PRN PRN Reason: Constipation Magnesium Oxide (Magnesium Oxide) 400 mg PO BIDPRN PRN PRN Reason: FOR SERUM MAG 1.4 - 2.0 Magnesium Oxide (Magnesium Oxide) 800 mg PO PRN PRN PRN Reason: FOR SERUM MAG < 1.4 Miscellaneous Medication (Phos-Nak) 1 pkt PO TIDPRN PRN PRN Reason: FOR PHOS LEVEL 1.0 - 1.8 Miscellaneous Medication (Phos-Nak) 2 pkt PO TIDPRN PRN PRN Reason: FOR PHOS LEVEL 0.5 - 1.0 Nitroglycerin (Nitrostat) 0.4 mg SL Q5MIN PRN PRN Reason: Chest Pain Ondansetron HCl (Zofran) 4 mg IVP Q6H PRN PRN Reason: Nausea/Vomiting Potassium Chloride (K-Dur) 40 meq PO ASDIR PRN PRN Reason: FOR SERUM K+ 2.5 - 3.5 Potassium Chloride (Klor-Con) 40 meq PER TUBE ASDIR PRN PRN Reason: FOR SERUM K+ 2.5-3.5 Sodium Chloride (Flush - Normal Saline) 10 ml IVF PRN PRN PRN Reason: Saline Flush Sodium Chloride (Flush - Normal Saline) 10 ml IVF PRN PRN PRN Reason: Saline Flush
--- NOTE | 2017-12-08 14:17 | ECHO ---
TRANSESOPHAGEAL ECHOCARDIOGRAM: DATE OF PROCEDURE: 12/08/17 INDICATION: 37-year-old gentleman with a CVA. DESCRIPTION OF PROCEDURE: The patient was taken to the PACU. The patient was sedated by anesthesiology. A transesophageal probe was placed in the distal esophagus and stomach. Echocardiographic images were obtained. A contrast bubble exam was performed. The transesophageal probe was removed. FINDINGS: 1. Normal left ventricular systolic function. 2. Normal mitral and aortic valves. 3. Mild mitral regurgitation. 4. No thrombus in the left atrium or left atrial appendage. 5. No PFO by color Doppler or contrast bubble exam. 6. Atherosclerotic debris in the descending aorta. IMPRESSION: No PFO by color Doppler or contrast bubble exam. No thrombus noted in the left atrial appendage.
[2017-12-08] MEDS: Famotidine 40 MG/4 ML VIAL SLOW IVP SCH (21:01)
[2017-12-08] MEDS: Atorvastatin Calcium 20 MG TAB PO SCH (21:02)
[2017-12-09] MEDS: Sodium Chloride 0.9% 1,000 ML IV SCH (09:38)
[2017-12-09] MEDS: Aspirin 325 MG TAB PO SCH (09:38)
[2017-12-09] MEDS: Famotidine 40 MG/4 ML VIAL SLOW IVP SCH ×2 (09:42→20:41)
[2017-12-09 12:31] VITALS: BMI 36.9
--- NOTE | 2017-12-09 19:52 | PDOC.PN ---
- Subjective Encounter Start Date: 12/09/17 Encounter Start Time: 19:35 Subjective: f/u post L MCA territorial ischemic CVA with aphasia and R hemiparesis. -: Stroke protocol currently and awaiting Rehab options. Receiving ASA and -: Lipitor. - Objective Vital Signs & Weight: Vital Signs (12 hours) Temp Pulse Pulse Resp BP BP Pulse Ox 12/09/17 15:51 98 F 64 16 124/75 95 12/09/17 12:00 98.4 F 83 16 127/71 98 12/09/17 11:30 65 127/71 12/09/17 08:00 97.6 F 72 16 96 Weight Admit Weight 282 lb Weight 280 lb 3.2 oz Most Recent Monitor Data Heart Rate from ECG 78 NIBP 148/87 NIBP BP-Mean 104 Respiration from ECG 15 SpO2 99 I&O: 12/08/17 12/09/17 12/10/17 06:59 06:59 06:59 Intake Total 1992 1860 1440 Output Total 1400 2450 Balance 593 -590 1440 Result Diagrams: 12/07/17 05:12 12/07/17 05:12 Radiology Reviewed by me: Yes (2D echo - EF 50-55%) EKG Reviewed by me: Yes (Tele - SR) Phys Exam - Physical Examination Constitutional: NAD HEENT: PERRLA, oral pharynx no lesions Neck: no JVD, supple Respiratory: no wheezing Cardiovascular: RRR Gastrointestinal: soft, non-tender, no distention, positive bowel sounds Musculoskeletal: no edema, pulses present R hemiparesis, expressive aphasia Skin: normal turgor, cap refill <2 seconds Dx/Plan (1) CVA (cerebral vascular accident) Code(s): I63.9 - CEREBRAL INFARCTION, UNSPECIFIED Status: Acute Qualifiers: Precerebral and cerebral artery: middle cerebral artery Laterality of affected vessel: left Comment: Ischemic infarct on ASA 325mg daily, continue Lipitor 20mg HS (2) Aphasia due to recent cerebrovascular accident Code(s): I69.320 - APHASIA FOLLOWING CEREBRAL INFARCTION Status: Acute Comment: ST for evaluation, awaiting rehab options (3) Cerebral edema Code(s): G93.6 - CEREBRAL EDEMA Status: Acute Comment: due to CVA, supportive (4) Drug abuse Code(s): F19.10 - OTHER PSYCHOACTIVE SUBSTANCE ABUSE, UNCOMPLICATED Status: Acute Comment: Detox options (5) Hemiparesis Code(s): G81.90 - HEMIPLEGIA, UNSPECIFIED AFFECTING UNSPECIFIED SIDE Status: Acute Qualifiers: Hemiparesis etiology: cerebrovascular etiology Comment: R hemiparesis, PT/OT - Plan PT/OT, social sciences research scientist, speech therapy, DVT proph w/SCDs Stable overall -: Continue general stroke protocol -: PT/OT/ST -: Continue ASA 325mg daily -: Continue Lipitor 20mg HS * CM for Rehab/SNF options
[2017-12-09] MEDS: Atorvastatin Calcium 20 MG TAB PO SCH (20:41)
[2017-12-10] MEDS: Famotidine 40 MG/4 ML VIAL SLOW IVP SCH (08:59)
[2017-12-10] MEDS: Sodium Chloride 0.9% 1,000 ML IV SCH (09:00)
[2017-12-10] MEDS: Aspirin 325 MG TAB PO SCH (09:00)
--- NOTE | 2017-12-10 12:34 | PDOC.PN ---
- Subjective Encounter Start Date: 12/10/17 Encounter Start Time: 11:00 Subjective: lethargic but awakens easily -: says a few words, oriented fairly well -: moves left extremities well, is eating well - Objective MAR Reviewed: Yes Vital Signs & Weight: Vital Signs (12 hours) Temp Pulse Resp BP Pulse Ox 12/10/17 11:43 99.0 F 71 20 117/64 96 12/10/17 08:00 98.4 F 72 20 12/10/17 07:45 98.4 F 72 20 130/83 93 L 12/10/17 03:55 98.0 F 67 16 117/75 94 L Weight Admit Weight 282 lb Weight 275 lb 1.6 oz Most Recent Monitor Data Heart Rate from ECG 78 NIBP 148/87 NIBP BP-Mean 104 Respiration from ECG 15 SpO2 99 I&O: 12/09/17 12/10/17 12/11/17 06:59 06:59 06:59 Intake Total 1860 1920 480 Output Total 2450 Balance -590 1920 480 Result Diagrams: 12/07/17 05:12 12/07/17 05:12 Phys Exam - Physical Examination HEENT: PERRLA, moist MMs Neck: no JVD, supple Respiratory: no wheezing, no rales Cardiovascular: RRR, no significant murmur Gastrointestinal: soft, non-tender, positive bowel sounds Musculoskeletal: no edema, pulses present right hemiplegia, dysarthria Dx/Plan (1) CVA (cerebral vascular accident) Code(s): I63.9 - CEREBRAL INFARCTION, UNSPECIFIED Status: Acute Qualifiers: Precerebral and cerebral artery: middle cerebral artery Laterality of affected vessel: left Comment: Ischemic infarct on ASA 325mg daily, continue Lipitor 20mg HS (2) Dysarthria Code(s): R47.1 - DYSARTHRIA AND ANARTHRIA Status: Acute (3) Drug abuse Code(s): F19.10 - OTHER PSYCHOACTIVE SUBSTANCE ABUSE, UNCOMPLICATED Status: Acute (4) Physical deconditioning Code(s): R53.81 - OTHER MALAISE Status: Acute - Plan neurologically stable -: is improving a bit with speech but has dense right hemiplegia -: has not ambulated so far, is right handed person -: will be disabled, needs medicaid pending snf options -: on asp, lipitor. d/w mother at bedside * . Review of Systems - Medications/Allergies Allergies/Adverse Reactions: Allergies Allergy/AdvReac Type Severity Reaction Status Date / Time No Known Drug Allergies Allergy Verified 12/05/17 10:27 Medications: Current Medications Acetaminophen (Tylenol) 650 mg PO Q6H PRN PRN Reason: Fever > 101 or Headache Al Hydroxide/Mg Hydroxide (Maalox) 30 ml PO Q8H PRN PRN Reason: Indigestion Albuterol/Ipratropium (Duoneb) 3 ml NEB [id number] PRN PRN Reason: SOB &/or Wheezing Aspirin (Aspirin) 325 mg PO DAILY [facility] Last Admin: 12/10/17 09:00 Dose: 325 mg Atorvastatin Calcium (Lipitor) 20 mg PO HS [facility] Last Admin: 12/09/17 20:41 Dose: 20 mg Bisacodyl (Dulcolax) 10 mg PO DAILYPRN PRN PRN Reason: Constipation Famotidine (Pepcid) 20 mg SLOW IVP Q12HR [facility] Last Admin: 12/10/17 08:59 Dose: 20 mg Norepinephrine Bitartrate (Levophed) 250 mls @ 0 mls/hr IVPB PRN PRN; Protocol ; Titrate PRN Reason: To maintain MAP > 65 Potassium Chloride 40 meq/ (Sodium Chloride) 270 mls @ 135 mls/hr IVPB ASDIR PRN PRN Reason: FOR SERUM K+ 2.5 - 3.5 Potassium Chloride 40 meq/ (Device) 100 mls @ 50 mls/hr IVPB ASDIR PRN PRN Reason: FOR SERUM K+ 2.5 - 3.5 Magnesium Sulfate 1 gm/ Sodium (Chloride) 102 mls @ 102 mls/hr IV PRN PRN PRN Reason: MAG LEVEL 1.4 - 2.0 Magnesium Sulfate 2 gm/ Device 100 mls @ 100 mls/hr IVPB ASDIR PRN PRN Reason: MAGNESIUM < 1.4 Potassium Phosphate 9 mmol/ (Sodium Chloride) 103 mls @ 25.75 mls/hr IVPB ASDIR PRN PRN Reason: Phosphate 1.0-1.8 Potassium Phosphate 12 mmol/ (Sodium Chloride) 254 mls @ 63.5 mls/hr IV ASDIR PRN PRN Reason: Serum phosphate 0.5-0.9 Potassium Phosphate 15 mmol/ (Sodium Chloride) 255 mls @ 63.75 mls/hr IV ASDIR PRN PRN Reason: Serum Phos < 0.5 Sodium Chloride (Normal Saline 0.9%) 1,000 mls @ 50 mls/hr IV .Q20H [facility] Last Admin: 12/10/17 09:00 Dose: Not Given Labetalol HCl (Normodyne) 10 mg SLOW IVP Q2H PRN PRN Reason: SBP > 150 or DBP > 90 Last Admin: 12/07/17 06:15 Dose: 10 mg Lorazepam (Ativan) 1 mg SLOW IVP Q4H PRN PRN Reason: Anxiety/Agitation Magnesium Hydroxide (Milk Of Magnesium) 30 ml PO Q8H PRN PRN Reason: Constipation Magnesium Oxide (Magnesium Oxide) 400 mg PO BIDPRN PRN PRN Reason: FOR SERUM MAG 1.4 - 2.0 Magnesium Oxide (Magnesium Oxide) 800 mg PO PRN PRN PRN Reason: FOR SERUM MAG < 1.4 Miscellaneous Medication (Phos-Nak) 1 pkt PO TIDPRN PRN PRN Reason: FOR PHOS LEVEL 1.0 - 1.8 Miscellaneous Medication (Phos-Nak) 2 pkt PO TIDPRN PRN PRN Reason: FOR PHOS LEVEL 0.5 - 1.0 Nitroglycerin (Nitrostat) 0.4 mg SL Q5MIN PRN PRN Reason: Chest Pain Ondansetron HCl (Zofran) 4 mg IVP Q6H PRN PRN Reason: Nausea/Vomiting Potassium Chloride (K-Dur) 40 meq PO ASDIR PRN PRN Reason: FOR SERUM K+ 2.5 - 3.5 Potassium Chloride (Klor-Con) 40 meq PER TUBE ASDIR PRN PRN Reason: FOR SERUM K+ 2.5-3.5 Sodium Chloride (Flush - Normal Saline) 10 ml IVF PRN PRN PRN Reason: Saline Flush Sodium Chloride (Flush - Normal Saline) 10 ml IVF PRN PRN PRN Reason: Saline Flush
[2017-12-10] MEDS: Atorvastatin Calcium 20 MG TAB PO SCH (21:25)
[2017-12-10] MEDS: Famotidine 20 MG TAB PO SCH (21:25)
[2017-12-11] MEDS: Aspirin 325 MG TAB PO SCH (08:54)
[2017-12-11] MEDS: Famotidine 20 MG TAB PO SCH ×2 (08:54→20:43)
--- NOTE | 2017-12-11 11:06 | PDOC.PN ---
- Subjective Encounter Start Date: 12/11/17 Encounter Start Time: 09:45 Subjective: awake, ate his breakfast -: moves left extremities well - Objective MAR Reviewed: Yes Vital Signs & Weight: Vital Signs (12 hours) Temp Pulse Resp BP Pulse Ox 12/11/17 08:00 98.8 F 74 18 129/72 96 12/11/17 03:43 98.2 F 69 18 134/94 H 98 12/11/17 00:13 97.0 F L 73 16 140/88 94 L Weight Admit Weight 282 lb Weight 272 lb 4.8 oz Most Recent Monitor Data Heart Rate from ECG 78 NIBP 148/87 NIBP BP-Mean 104 Respiration from ECG 15 SpO2 99 I&O: 12/10/17 12/11/17 12/12/17 06:59 06:59 06:59 Intake Total 1920 1320 Output Total 0 Balance 1920 1320 Result Diagrams: 12/07/17 05:12 12/07/17 05:12 Phys Exam - Physical Examination HEENT: PERRLA, moist MMs Neck: no JVD, supple Respiratory: no wheezing, no rales Cardiovascular: RRR, no significant murmur Gastrointestinal: soft, non-tender, no distention, positive bowel sounds Musculoskeletal: no edema, pulses present right hemiplegia, aphasia Dx/Plan (1) CVA (cerebral vascular accident) Code(s): I63.9 - CEREBRAL INFARCTION, UNSPECIFIED Status: Acute Qualifiers: Precerebral and cerebral artery: middle cerebral artery Laterality of affected vessel: left Comment: Ischemic infarct on ASA 325mg daily, continue Lipitor 20mg HS (2) Dysarthria Code(s): R47.1 - DYSARTHRIA AND ANARTHRIA Status: Acute (3) Drug abuse Code(s): F19.10 - OTHER PSYCHOACTIVE SUBSTANCE ABUSE, UNCOMPLICATED Status: Acute (4) Physical deconditioning Code(s): R53.81 - OTHER MALAISE Status: Acute - Plan needs placement, has no insurance -: neuro/hemostable -: family cant take care of him at home per mother, his has left him -: is on asp, lipitor and nebs prn -: PT to mobilize pt as tolerated/learn transfer to wheelchair etc * . Review of Systems - Medications/Allergies Allergies/Adverse Reactions: Allergies Allergy/AdvReac Type Severity Reaction Status Date / Time No Known Drug Allergies Allergy Verified 12/05/17 10:27 Medications: Current Medications Acetaminophen (Tylenol) 650 mg PO Q6H PRN PRN Reason: Fever > 101 or Headache Al Hydroxide/Mg Hydroxide (Maalox) 30 ml PO Q8H PRN PRN Reason: Indigestion Albuterol/Ipratropium (Duoneb) 3 ml NEB [id number] PRN PRN Reason: SOB &/or Wheezing Aspirin (Aspirin) 325 mg PO DAILY [facility] Last Admin: 12/11/17 08:54 Dose: 325 mg Atorvastatin Calcium (Lipitor) 20 mg PO HS [facility] Last Admin: 12/10/17 21:25 Dose: 20 mg Bisacodyl (Dulcolax) 10 mg PO DAILYPRN PRN PRN Reason: Constipation Famotidine (Pepcid) 20 mg PO BID [facility] Last Admin: 12/11/17 08:54 Dose: 20 mg Labetalol HCl (Normodyne) 10 mg SLOW IVP Q2H PRN PRN Reason: SBP > 150 or DBP > 90 Last Admin: 12/07/17 06:15 Dose: 10 mg Lorazepam (Ativan) 1 mg SLOW IVP Q4H PRN PRN Reason: Anxiety/Agitation Magnesium Hydroxide (Milk Of Magnesium) 30 ml PO Q8H PRN PRN Reason: Constipation Nitroglycerin (Nitrostat) 0.4 mg SL Q5MIN PRN PRN Reason: Chest Pain Ondansetron HCl (Zofran) 4 mg IVP Q6H PRN PRN Reason: Nausea/Vomiting Sodium Chloride (Flush - Normal Saline) 10 ml IVF PRN PRN PRN Reason: Saline Flush Sodium Chloride (Flush - Normal Saline) 10 ml IVF PRN PRN PRN Reason: Saline Flush
[2017-12-11] MEDS: Atorvastatin Calcium 20 MG TAB PO SCH (20:43)
[2017-12-12] MEDS: Famotidine 20 MG TAB PO SCH ×2 (09:32→20:29)
[2017-12-12] MEDS: Aspirin 325 MG TAB PO SCH (09:32)
[2017-12-12 12:07] LABS: Factor VIII Test 217.9 % ACTIVE (56-157)
[2017-12-12 12:30] LABS: Protein C Activity 115 % (78-152)
--- NOTE | 2017-12-12 12:45 | PDOC.PN ---
- Subjective Encounter Start Date: 12/12/17 Encounter Start Time: 09:15 Subjective: awake, not in distress -: mom at bedside - Objective MAR Reviewed: Yes Vital Signs & Weight: Vital Signs (12 hours) Temp Pulse Pulse Pulse Resp BP BP 12/12/17 11:40 97.9 F 75 18 12/12/17 08:50 83 81 139/94 H 140/82 12/12/17 07:40 98.7 F 78 16 12/12/17 07:38 98.7 F 78 16 12/12/17 07:36 18 12/12/17 02:20 70 20 BP Pulse Ox Pulse Ox Pulse Ox 12/12/17 11:40 128/83 95 12/12/17 08:50 96 95 12/12/17 07:40 93 L 12/12/17 07:38 116/72 95 12/12/17 07:36 130/90 12/12/17 02:20 142/88 H Weight Admit Weight 282 lb Weight 272 lb 4.8 oz Most Recent Monitor Data Heart Rate from ECG 78 NIBP 148/87 NIBP BP-Mean 104 Respiration from ECG 15 SpO2 99 I&O: 12/11/17 12/12/17 12/13/17 06:59 06:59 06:59 Intake Total 1320 330 Output Total 0 Balance 1320 330 Result Diagrams: 12/07/17 05:12 12/07/17 05:12 Phys Exam - Physical Examination HEENT: PERRLA, moist MMs Neck: no JVD, supple Respiratory: no wheezing, no rales Cardiovascular: RRR, no significant murmur Gastrointestinal: soft, non-tender, positive bowel sounds Musculoskeletal: no edema, pulses present right hemiplegia, aphasia Dx/Plan (1) CVA (cerebral vascular accident) Code(s): I63.9 - CEREBRAL INFARCTION, UNSPECIFIED Status: Acute Qualifiers: Precerebral and cerebral artery: middle cerebral artery Laterality of affected vessel: left Comment: Ischemic infarct on ASA 325mg daily, continue Lipitor 20mg HS (2) Dysarthria Code(s): R47.1 - DYSARTHRIA AND ANARTHRIA Status: Acute (3) Drug abuse Code(s): F19.10 - OTHER PSYCHOACTIVE SUBSTANCE ABUSE, UNCOMPLICATED Status: Acute (4) Physical deconditioning Code(s): R53.81 - OTHER MALAISE Status: Acute - Plan has persistent left hemiplegia and aphasia, will likely be disabled for -: - a year. D/w mom at bedside -: awaiting placement -: is on asp and lipitor -: PT/OT/Speech ongoing eval * . Review of Systems - Medications/Allergies Allergies/Adverse Reactions: Allergies Allergy/AdvReac Type Severity Reaction Status Date / Time No Known Drug Allergies Allergy Verified 12/05/17 10:27 Medications: Current Medications Acetaminophen (Tylenol) 650 mg PO Q6H PRN PRN Reason: Fever > 101 or Headache Al Hydroxide/Mg Hydroxide (Maalox) 30 ml PO Q8H PRN PRN Reason: Indigestion Albuterol/Ipratropium (Duoneb) 3 ml NEB [id number] PRN PRN Reason: SOB &/or Wheezing Aspirin (Aspirin) 325 mg PO DAILY [facility] Last Admin: 12/12/17 09:32 Dose: 325 mg Atorvastatin Calcium (Lipitor) 20 mg PO HS [facility] Last Admin: 12/11/17 20:43 Dose: 20 mg Bisacodyl (Dulcolax) 10 mg PO DAILYPRN PRN PRN Reason: Constipation Famotidine (Pepcid) 20 mg PO BID [facility] Last Admin: 12/12/17 09:32 Dose: 20 mg Labetalol HCl (Normodyne) 10 mg SLOW IVP Q2H PRN PRN Reason: SBP > 150 or DBP > 90 Last Admin: 12/07/17 06:15 Dose: 10 mg Lorazepam (Ativan) 1 mg SLOW IVP Q4H PRN PRN Reason: Anxiety/Agitation Magnesium Hydroxide (Milk Of Magnesium) 30 ml PO Q8H PRN PRN Reason: Constipation Nitroglycerin (Nitrostat) 0.4 mg SL Q5MIN PRN PRN Reason: Chest Pain Ondansetron HCl (Zofran) 4 mg IVP Q6H PRN PRN Reason: Nausea/Vomiting Sodium Chloride (Flush - Normal Saline) 10 ml IVF PRN PRN PRN Reason: Saline Flush Sodium Chloride (Flush - Normal Saline) 10 ml IVF PRN PRN PRN Reason: Saline Flush
[2017-12-12] MEDS: Atorvastatin Calcium 20 MG TAB PO SCH (20:28)
[2017-12-13 04:53] VITALS: BP 140/81; TEMP 98.3
[2017-12-13] MEDS: Famotidine 20 MG TAB PO SCH (08:55)
[2017-12-13] MEDS: Aspirin 325 MG TAB PO SCH (08:55)
--- NOTE | 2017-12-13 11:01 | PDOC.PN ---
- Subjective Encounter Start Date: 12/13/17 Encounter Start Time: 09:15 Subjective: awake, responds to verbal stimuli -: eating well, mom at bedside - Objective MAR Reviewed: Yes Vital Signs & Weight: Vital Signs (12 hours) Temp Pulse Resp BP Pulse Ox 12/13/17 08:00 98.3 F 72 20 12/13/17 04:53 98.3 F 72 20 140/81 96 12/13/17 00:00 97.6 F 66 20 141/70 H 94 L Weight Admit Weight 282 lb Weight 272 lb 4.8 oz Most Recent Monitor Data Heart Rate from ECG 78 NIBP 148/87 NIBP BP-Mean 104 Respiration from ECG 15 SpO2 99 I&O: 12/12/17 12/13/17 12/14/17 06:59 06:59 06:59 Intake Total 990 Balance 990 Result Diagrams: 12/07/17 05:12 12/07/17 05:12 Phys Exam - Physical Examination HEENT: PERRLA, moist MMs Neck: no JVD, supple Respiratory: no wheezing, no rales Cardiovascular: RRR, no significant murmur Gastrointestinal: soft, non-tender, positive bowel sounds Musculoskeletal: no edema, edema present right hemiplegia, aphasia Psychiatric: A&O x 3 Dx/Plan (1) CVA (cerebral vascular accident) Code(s): I63.9 - CEREBRAL INFARCTION, UNSPECIFIED Status: Acute Qualifiers: Precerebral and cerebral artery: middle cerebral artery Laterality of affected vessel: left Comment: Ischemic infarct on ASA 325mg daily, continue Lipitor 20mg HS (2) Dysarthria Code(s): R47.1 - DYSARTHRIA AND ANARTHRIA Status: Acute (3) Drug abuse Code(s): F19.10 - OTHER PSYCHOACTIVE SUBSTANCE ABUSE, UNCOMPLICATED Status: Acute (4) Physical deconditioning Code(s): R53.81 - OTHER MALAISE Status: Acute - Plan has been accepted to [facility] in [place] -: dc anytime -: continue asp, lipitor, small dose of toprol xl * .
--- NOTE | 2017-12-13 15:19 | DIS ---
DATE OF ADMISSION: 12/05/2017 DATE OF DISCHARGE: 12/13/2017 DISCHARGE DISPOSITION: To swing bed at [facility] in [place]. 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 PROCEDURES DONE DURING HOSPITALIZATION: MRI of brain showed multifocal infarct in the left middle cerebral artery distribution. There is an area of enhancement in the left parietal lobe. Transthoracic echo done showed no obvious thrombus, ejection fraction was 50%-55%. Carotid Doppler showed no hemodynamically significant stenosis. Transesophageal echo done showed no thrombus. There was no PFO by color Doppler or contrast bubble exam, hemoglobin and hematocrit 15 and 45, platelet count 284. BUN 19, creatinine 0.8 , total cholesterol 232, triglycerides 85 and LDL 179. TSH 1.28. Cardiac enzymes x3 were negative. BNP was 10. Urine drug screen was positive for amphetamine and cannabinoids. INPATIENT CONSULTS: Dr. Colin for Cardiology, Dr. Gaston for Pulmonary and Critical Care, Dr. Remedios Iqbal for Neurology. BRIEF COURSE DURING HOSPITALIZATION: Patient was initially brought to emergency room after he was found at home in bed. He did report taking unknown amounts of bath salts as well as K2. He was hypertensive with pressures of 167/ 112 on arrival and was aphasic and was not moving left lower extremities. He has had initial CT brain and subsequent MRI brain done, all confirmed left MCA stroke with right hemiplegia and aphasia. He was initially admitted to ICU. He was placed on Cardene drip and was closely monitored. The patient has had consultations with Neurosurgery, Neurology and Critical Care while he was here. He has also had transthoracic and transesophageal echo done, which has not revealed any thrombus or PFO. The patient was completely aphasic and is slowly responding with few words now at the time of discharge. He has also been able to eat well. The patient has not been able to get up independently or stand independently without maximal assistance. In view of this, he is being discharged to a swing bed for further recuperation prior to going home. He is otherwise hemodynamically stable and was closely monitored inhouse for nearly 6- 7 days. He still has dense hemiplegia on the right. Please see a face to face documentation on [facility] for the day of discharge. A total of 35 minutes was spent on discharge plan. [facility]
[2017-12-13 18:11] LABS: Activated Protein C Resistance 2.4 ratio (.); Hexagonal Phospholipid Neut 11 sec (.)
--- NOTE | 2018-01-14 14:21 | EKG ---
Test Reason : BATH SALTS Blood Pressure : / mmHG Vent. Rate : 083 BPM Atrial Rate : 083 BPM P-R Int : 160 ms QRS Dur : 092 ms QT Int : 398 ms P-R-T Axes : 030 000 -47 degrees QTc Int : 467 ms Poor data quality, interpretation may be adversely affected Normal sinus rhythm Minimal voltage criteria for LVH, may be normal variant Nonspecific T wave abnormality Prolonged QT Abnormal ECG Confirmed by KECIA PASCUAL M.D. ([id number]), communications editor JOSESITO WANG ([id number] on 01/14/2018 2:20:50 PM Referred By: Confirmed By:KECIA PASCUAL M.D.
== END 2017-12-13 11:55 | DRG 64 ==
LOC: ERS 05:56 → CCU 08:30 → 2SE 12-07 11:50
PROVIDERS: ADMIT Internal Medicine; ATTEND Internal Medicine
PROC: B24BZZ4 Ultrasonography of Heart with Aorta, Transesophageal (ICD-10-PCS; principal; 2017-12-08)
DX: I63.512 Cerebral infarction due to unspecified occlusion or stenosis of left middle cerebral artery (principal); G93.6 Cerebral edema; I61.2 Nontraumatic intracerebral hemorrhage in hemisphere, unspecified; R40.2222 Coma scale, best verbal response, incomprehensible words, at arrival to emergency department; G81.91 Hemiplegia, unspecified affecting right dominant side; R47.01 Aphasia; E66.9 Obesity, unspecified; Z68.37 Body mass index [BMI] 37.0-37.9, adult; I11.9 Hypertensive heart disease without heart failure; F12.10 Cannabis abuse, uncomplicated; R47.1 Dysarthria and anarthria; F19.10 Other psychoactive substance abuse, uncomplicated; R29.717 NIHSS score 17; R40.2142 Coma scale, eyes open, spontaneous, at arrival to emergency department; R40.2362 Coma scale, best motor response, obeys commands, at arrival to emergency department; F15.10 Other stimulant abuse, uncomplicated; E87.6 Hypokalemia
CPT/HCPCS: 36415; 70450; 70553; 71045; 80053; 80061; 80306; 80307; 81240; 82553; 83090; 83735; 83880; 84443; 84484; 85007; 85025; 85027; 85240; 85300; 85303; 85305; 85307; 85379; 85598; 85610; 85730; 93005; 93306; 93312; 93880; 96360; A9579; G8978-GP-CN; G8979-GP-CL; G8987-GO-CM; G8988-GO-CK; G8996-GN-CL; G8997-GN-CI; J1100; J2270; J2704; J3480; J7050; S0028

== ENCOUNTER 2020-12-18 08:27 | Emergency (ER) | payer SELFPAY ==
[2020-12-18 09:18] LABS: #Eosinphils 0.2 thou/uL (0.0-0.7); #Lymphocytes 1.4 thou/uL (1.20-3.40); #Monocytes 0.8 thou/uL (0.11-0.59); #Neutrophils 8.7 thou/uL (1.40-6.50); %Basophils 0.2 % (0.0-1.0); %Eosinophils 2.2 % (0.0-10.0); %Lymphocytes 12.3 % (21.0-51.0); %Monocytes 6.8 % (0.0-10.0); %Neutrophils 78.4 % (42.0-75.0); Hemoglobin 15.8 g/dL (14.0-18.0); Mean Corpuscular HGB CONC 32.8 g/dL (32.0-36.0); Mean Corpuscular Volume 88.5 fL (78.0-98.0); Mean Platelet Volume 8.1 fL (7.4-10.4); Platelet Count 233 thou/uL (130-400); RBC Distribution Width 12.4 % (11.5-14.5); Red Blood Cell (RBC) Count 5.43 mill/uL (4.70-6.10); White Blood Cell (WBC) Count 11.1 thou/uL (4.8-10.8)
[2020-12-18 09:40] LABS: ALT (SGPT) 29 U/L (8-55); AST (SGOT) 19 U/L (5-34); Albumin 3.7 g/dL (3.5-5.0); Alkaline Phosphatase 107 U/L (40-110); Anion Gap 11 mmol/L (10-20); BUN (Urea Nitrogen) 11 mg/dL (8.9-20.6); Bilirubin, Total 0.7 mg/dL (0.2-1.2); Calc. Creatinine Clearance 0 mL/min (70-130); Calcium 8.1 mg/dL (7.8-10.44); Carbon Dioxide 30 mmol/L (22-29); Chloride 102 mmol/L (98-107); Globulin 2.6 g/dL (2.4-3.5); Glucose 95 mg/dL (70-105); Lipase 47 U/L (8-78); Potassium 3.8 mmol/L (3.5-5.1); Protein, Total 6.3 g/dL (6.0-8.3); Sodium 139 mmol/L (136-145)
--- NOTE | 2020-12-18 11:01 | RAD ---
PORTABLE CHEST: Date: 12/18/2020 PROVIDED CLINICAL HISTORY: Nausea. FINDINGS: Comparison 12/05/2017. Cardiac and mediastinal silhouette is within normal limits. No focal consolidation, pleural fluid, or pneumothorax apparent. IMPRESSION: No evidence for an acute cardiopulmonary process. POS: BÁRBARA
--- NOTE | 2020-12-18 11:08 | CT ---
CT BRAIN: Date: 12/18/2020 PROVIDED CLINICAL HISTORY: Syncope. FINDINGS: Comparison made with study dated 12/06/2017. There is interval encephalomalacia involving the left caudate and portion of the left lentiform nucle us. Encephalomalacia involving the left parietal region is redemonstrated. There is ex vacuo dilatati on of the frontal horn of the left lateral ventricle. There is no evidence for intracranial hemorrhag e or mass effect. The extracranial soft tissues and osseous structures demonstrate an unremarkable CT appearance. IMPRESSION: No evidence for intracranial hemorrhage or mass effect. POS: BÁRBARA
== END 2020-12-18 12:15 | disposition home or self-care (01) ==
LOC: ERS 08:27
DX: R55 Syncope and collapse (principal); I10 Essential (primary) hypertension; E78.00 Pure hypercholesterolemia, unspecified; Z86.73 Personal history of transient ischemic attack (TIA), and cerebral infarction without residual deficits
CPT/HCPCS: 36415; 70450; 71045; 80053; 83690; 84484; 85025; 93005; 94760

== ENCOUNTER 2021-02-20 04:02 | Emergency (ER) | payer SELFPAY | END 2021-02-20 04:32 | disposition home or self-care (01) | LOC: ERS 04:02 | DX: M79.10 Myalgia, unspecified site (principal); R11.0 Nausea; Z86.73 Personal history of transient ischemic attack (TIA), and cerebral infarction without residual deficits; I10 Essential (primary) hypertension; E78.00 Pure hypercholesterolemia, unspecified | CPT/HCPCS: 99281 ==